=== PATIENT | female | born 1985 | race Two or more races ===

== ENCOUNTER → 2020-12-16 | Outpatient (CLI) | payer OTHER | END | disposition home or self-care (01) | LOC: PPH VACUNA | DX: Z23 Encounter for immunization (principal) ==

== ENCOUNTER 2021-06-18 13:20 | Outpatient (CLI) | payer OTHER | END 2021-06-18 13:45 | disposition home or self-care (01) | LOC: PPH VACUNA 13:20 | PROVIDERS: ATTEND Emergency Medicine Pediatric Emergency Medicine | DX: Z23 Encounter for immunization (principal) ==